=== PATIENT | female | born 1970 | race Caucasian/White ===

== ENCOUNTER → 2016-07-16 | Outpatient (CLI) | payer BC | END | disposition home or self-care (01) | LOC: KCIC MAMMO 15:37 | PROVIDERS: ATTEND Family Medicine | DX: Z12.31 Encounter for screening mammogram for malignant neoplasm of breast (principal) | CPT/HCPCS: G0202; 77067 ==

== ENCOUNTER → 2016-08-05 | Outpatient (CLI) | payer BC ==
--- NOTE | 2016-08-05 10:32 | RAD ---
Right breast ultrasound, 08/05/2016: History: Suspicious screening study Screening mammograms demonstrated vague increased density in the posterior superior aspect of the right breast seen on only the oblique view. Sonographic evaluation of the right breast was performed from the 7:00 to 3:00 locations. Heterogeneous fibroglandular shadows are present. At the 8:00 location approximately 5 cm from the nipple a 7 x 3 x 4 mm hypoechoic nodule is identified. There are low level internal echoes. In the radial plane its margins are smooth. This is probably a complicated cyst. At the 12:00 location approximately 1 cm from the nipple there is a small 11 x 6 x 7 cm nodule. There are low level internal echoes with a thin septation. There is posterior acoustic enhancement. Its margins are fairly smooth. This is also probably a complicated cyst. No other right breast abnormality is detected. IMPRESSION: Probably benign right breast nodules as described above. Follow-up right breast ultrasound and right mammography in 6 months is suggested to establish stability. BI-RADS 3-probably benign findings
== END | disposition home or self-care (01) ==
LOC: KCIC US 09:26
PROVIDERS: ATTEND Family Medicine
DX: R92.8 Other abnormal and inconclusive findings on diagnostic imaging of breast (principal)
CPT/HCPCS: 76641

== ENCOUNTER → 2021-03-21 | Outpatient (CLI) | payer BC, OTHER ==
--- NOTE | 2021-03-21 13:52 | KCIC ---
EXAM: CT CORONARY CALCIUM SCORING. HISTORY: Coronary calcium screening. No family history. COMPARISON: None. FINDINGS: Limited noncontrast CT of the chest was performed for coronary calcium scoring. Refer to e worksheets for full detail Coronary calcium scoring is as follows: RCA: 0. LM: 0. LAD: 0. LCx: 0. Aorta: 0. Other: 0. Total (not including aorta and other): 0. This places the patient at the 0th percentile in age- and sex-matched subjects. The included portions of the chest reveal the following. Bone windows reveal no suspicious lesions. I mages of the upper abdomen reveal no acute abnormality. There are no pathologically enlarged mediastinal lymph nodes. There is no pleural or pericardial effu chiara. The heart is not enlarged. Calcified right lower lobe granuloma. IMPRESSION: 1. Coronary calcium score 0. Implication: No identifiable plaque. Risk of Coronary Artery Disease: Very low, generally less than 5%. --- Exposure: One or more of the following individualized dose reduction techniques were utilized for thi s examination: 1. Automated exposure control 2. Adjustment of the mA and/or kV according to patient size 3. Use of iterative reconstruction technique. Electronically signed by: John Hopkins MD (03/21/2021 1:49 PM) [facility]
== END ==
LOC: KCIC CT 12:24
PROVIDERS: ATTEND Family Medicine
DX: Z13.6 Encounter for screening for cardiovascular disorders (principal)
CPT/HCPCS: 75571